=== PATIENT | female | born 1955 | race Caucasian/White ===

== ENCOUNTER → 2016-10-14 | Outpatient (CLI) | payer BC ==
[~2016-10-14] MED LIST: NORCO 325 MG-51 TAB PO; PRILOSEC 20MG20 MG; SYNTHROID0.05 MG/TA PO
== END ==
LOC: MC.RAD 10:19
DX: Z12.31 Encounter for screening mammogram for malignant neoplasm of breast (principal)

== ENCOUNTER → 2017-11-11 | Outpatient (CLI) | payer BC | LOC: MC.RAD 11:19 | DX: Z12.31 Encounter for screening mammogram for malignant neoplasm of breast (principal) ==

== ENCOUNTER → 2018-12-07 | Outpatient (CLI) | payer BC | LOC: MC.RAD 15:28 | DX: Z12.31 Encounter for screening mammogram for malignant neoplasm of breast (principal) ==

== ENCOUNTER → 2018-12-19 | Outpatient (CLI) | payer BC | LOC: MC.RAD 12:42 | DX: N64.89 Other specified disorders of breast (principal) | CPT/HCPCS: G0279 ==

== ENCOUNTER → 2020-01-08 | Outpatient (CLI) | payer BC | LOC: MC.RAD 12:52 | DX: Z12.31 Encounter for screening mammogram for malignant neoplasm of breast (principal); N63.10 Unspecified lump in the right breast, unspecified quadrant ==

== ENCOUNTER → 2020-01-11 | Outpatient (CLI) | payer BC | LOC: MC.RAD 10:28 | DX: N63.10 Unspecified lump in the right breast, unspecified quadrant (principal) ==

== ENCOUNTER → 2020-01-23 | Outpatient (CLI) | payer BC | LOC: MC.RAD 09:50 | DX: N60.01 Solitary cyst of right breast (principal) ==

== ENCOUNTER → 2021-01-15 | Outpatient (CLI) | payer BC | LOC: MC.RAD 10:42 | DX: Z12.31 Encounter for screening mammogram for malignant neoplasm of breast (principal) ==

== ENCOUNTER → 2022-01-22 | Outpatient (CLI) | payer BC | LOC: MC.RAD 11:18 | DX: Z12.31 Encounter for screening mammogram for malignant neoplasm of breast (principal); N64.89 Other specified disorders of breast ==

== ENCOUNTER → 2022-02-05 | Outpatient (CLI) | payer BC | LOC: MC.RAD 01-28 13:00 | DX: R92.8 Other abnormal and inconclusive findings on diagnostic imaging of breast (principal) ==

== ENCOUNTER → 2023-09-20 | Outpatient (CLI) | payer MEDICARE ==
[2006-04-01 08:20] VITALS: TEMP 98.3
== END ==
LOC: MC.RAD 09:12
DX: Z12.31 Encounter for screening mammogram for malignant neoplasm of breast (principal); N63.20 Unspecified lump in the left breast, unspecified quadrant